=== PATIENT | male | born 1975 | race American Indian/Alaskan Native ===

== ENCOUNTER 2017-02-27 01:47 | Emergency (ER) | payer SELFPAY ==
[2017-02-27 02:11] VITALS: BP 134/91
== END 2017-02-27 04:20 | disposition left against medical advice (07) ==
LOC: ED 01:47
DX: R07.9 Chest pain, unspecified (principal); Z53.21 Procedure and treatment not carried out due to patient leaving prior to being seen by health care provider
CPT/HCPCS: 93005; 93010

== ENCOUNTER 2017-02-27 10:06 | Emergency (ER) | payer SELFPAY ==
--- NOTE | 2017-02-27 10:23 | Emergency Department Report ---
Chief Complaint: Chest Pain Stated Complaint: CHEST PAIN Time Seen by Provider: 02/27/17 10:18 - HPI History of Present Illness: PT states he went to sleep with chest pain( started 1900) but woke up at 0300 with worsening pain. PT states when he woke up, he also felt dizzy. - ROS Review of Systems: + chest pain + cough x 1 week - fever - vomiting - Exam Physical Exam: pt is alert and appropriate. no acute resp distress ant chest wall ttp MSE screening note: Focused history and physical exam performed. Due to findings the following was ordered: ekg, labs, xr ED Disposition for MSE Condition: Stable
[2017-02-27 10:25] VITALS: BP 155/102
--- NOTE | 2017-02-27 11:11 | XRay Report ---
CHEST 2 VIEWS INDICATION: Chest pain. COMPARISON: None similar at this institution. FINDINGS: PA and lateral chest radiographs demonstrate normal cardiomediastinal silhouette. Clear, mildly hyperexpanded lungs. No pleural effusions or CHF, though slight thickening/fluid along the major fissures noted. Intact bones. CONCLUSION: Possible COPD without acute chest process, as described. Thank you for the opportunity to participate in this patient's care.
[2017-02-27 11:18] LABS: Basophils % (Auto) 0.5 % (0.0-1.8); Eosinophils % (Auto) 2.3 % (0.0-4.3); Hematocrit 34.4 % (35.5-45.6); Hemoglobin 10.8 gm/dl (11.8-15.2); Mean Corpuscular HGB Conc 31 % (32-34); Mean Corpuscular Volume 73 fl (84-94); Platelet Count 224 K/mm3 (140-440); Red Blood Count 4.74 M/mm3 (3.65-5.03); Red Cell Distribution Width 16.6 % (13.2-15.2); White Blood Count 5.5 K/mm3 (4.5-11.0)
[2017-02-27 11:20] LABS: INR 0.93 (0.87-1.13)
[2017-02-27 11:21] LABS: Mean Corpuscular Hemoglobin 23 pg (28-32); Partial Thromboplastin Time 28.9 Sec. (24.2-36.6)
[2017-02-27 11:22] LABS: Alanine Aminotransferase 31 units/L (7-56); Albumin/Globulin Ratio 1.3 %; Alkaline Phosphatase 103 units/L (35-129); Anion Gap 18 mmol/L; Bilirubin,Total < 0.20 mg/dL (0.1-1.2); Blood Urea Nitrogen 14 mg/dL (9-20); Calcium 8.9 mg/dL (8.4-10.2); Carbon Dioxide 22 mmol/L (22-30); Chloride 99.8 mmol/L (98-107); Creatine Kinase 968 units/L (55-170); Glucose 122 mg/dL (75-100); Potassium 3.8 mmol/L (3.6-5.0); Sodium 136 mmol/L (137-145); Total Protein 7.1 g/dL (6.3-8.2)
[2017-02-27 11:40] LABS: Creatine Kinase MB 13.9 ng/mL (0.0-4.0)
== END 2017-02-27 10:55 | disposition left against medical advice (07) ==
LOC: ED 10:06
DX: R07.9 Chest pain, unspecified (principal); R42 Dizziness and giddiness; R05 Cough; Z53.21 Procedure and treatment not carried out due to patient leaving prior to being seen by health care provider
CPT/HCPCS: 36415; 71020; 80053; 82550; 82553; 83880; 84484; 85025; 85610; 85730; 93005; 93010

== ENCOUNTER 2017-02-27 23:41 | Emergency (ER) | payer SELFPAY ==
[2017-02-27 23:49] VITALS: BP 143/96
[2017-02-28 00:09] LABS: Basophils % (Auto) 0.8 % (0.0-1.8); Hematocrit 33.9 % (35.5-45.6); Hemoglobin 10.8 gm/dl (11.8-15.2); Mean Corpuscular HGB Conc 32 % (32-34); Mean Corpuscular Volume 72 fl (84-94); Platelet Count 220 K/mm3 (140-440); Red Blood Count 4.69 M/mm3 (3.65-5.03); Red Cell Distribution Width 17.2 % (13.2-15.2); White Blood Count 5.8 K/mm3 (4.5-11.0)
[2017-02-28 00:22] LABS: Mean Corpuscular Hemoglobin 23 pg (28-32)
[2017-02-28 00:32] LABS: Anion Gap 19 mmol/L; Blood Urea Nitrogen 18 mg/dL (9-20); Carbon Dioxide 23 mmol/L (22-30); Chloride 101.3 mmol/L (98-107); Glucose 110 mg/dL (75-100); Sodium 139 mmol/L (137-145)
== END 2017-02-28 04:24 | disposition left against medical advice (07) ==
LOC: ED 02-28 02:39
DX: R06.2 Wheezing (principal); Z53.21 Procedure and treatment not carried out due to patient leaving prior to being seen by health care provider
CPT/HCPCS: 36415; 80048; 84484; 85025; 93005; 93010

== ENCOUNTER 2017-03-05 08:18 | Emergency (ER) | payer SELFPAY ==
[2017-03-05 08:31] VITALS: BP 162/109
--- NOTE | 2017-03-10 10:57 | ED Elopement Review ---
ED Pt Elopement review - Call Back decision Pt Call Back Decision: No action required
== END 2017-03-05 08:30 | disposition left against medical advice (07) ==
LOC: ED 08:18
DX: I10 Essential (primary) hypertension (principal); Z53.21 Procedure and treatment not carried out due to patient leaving prior to being seen by health care provider

== ENCOUNTER 2017-03-06 23:16 | Emergency (ER) | payer SELFPAY | END 2017-03-06 23:23 | disposition left against medical advice (07) | LOC: ED 23:16 | DX: R03.0 Elevated blood-pressure reading, without diagnosis of hypertension (principal); Z53.21 Procedure and treatment not carried out due to patient leaving prior to being seen by health care provider ==

== ENCOUNTER 2017-03-08 12:17 | Emergency (ER) | payer SELFPAY | END 2017-03-08 12:18 | disposition left against medical advice (07) | LOC: ED 12:17 | DX: R03.0 Elevated blood-pressure reading, without diagnosis of hypertension (principal); R42 Dizziness and giddiness; Z53.21 Procedure and treatment not carried out due to patient leaving prior to being seen by health care provider ==

== ENCOUNTER 2017-03-11 14:32 | Emergency (ER) | payer SELFPAY ==
[2017-03-11 15:24] LABS: Anion Gap 17 mmol/L; BUN/Creatinine Ratio 18.88; Blood Urea Nitrogen 17 mg/dL (9-20); Calcium 8.4 mg/dL (8.4-10.2); Carbon Dioxide 22 mmol/L (22-30); Chloride 101.3 mmol/L (98-107); Glucose 130 mg/dL (75-100); Potassium 3.9 mmol/L (3.6-5.0); Sodium 136 mmol/L (137-145)
[2017-03-11 15:42] LABS: Urine Drugs of Abuse Note Disclamer
[2017-03-11 15:56] LABS: Bilirubin,Urine NEG (Negative); Blood,Urine NEG (Negative); Ketones,Urine NEG (Negative); Leukocyte Esterase,Urine NEG (Negative); Nitrite,Urine NEG (Negative); Protein,Urine <15 mg/dL mg/dL (Negative); Urobilinogen,Urine < 2.0 mg/dL (<2.0); WBC,Urine < 1.0 /HPF (0.0-6.0)
[2017-03-11 16:03] LABS: Hematocrit 31.8 % (35.5-45.6); Hemoglobin 10.2 gm/dl (11.8-15.2); Mean Corpuscular HGB Conc 32 % (32-34); Mean Corpuscular Volume 72 fl (84-94); Platelet Count 239 K/mm3 (140-440)
[2017-03-11 16:09] LABS: Mean Corpuscular Hemoglobin 23 pg (28-32)
--- NOTE | 2017-03-11 21:43 | Emergency Department Report ---
HPI - General Chief Complaint: Dizziness Time Seen by Provider: 03/11/17 21:27 - HPI HPI: Room 5 The patient is a 41-year-old male presenting with a chief complaint of schizophrenia. The patient states "I need help" regarding his schizophrenia. The patient admits to auditory hallucinations for 2-3 years. The patient states the voices are making" small talk." The patient states she's been out of his Abilify for the past 6-7 months. Patient denies visual hallucinations or suicidal/homicidal ideation. Location: Mental state Duration: [see above] Quality: Auditory Hallucinations Severity: Moderate Modifying factors: [see above] Context: [see above] Mode of transportation: [not driving] ED Past Medical Hx - Past Medical History Hx Hypertension: Yes Hx Psychiatric Treatment: Yes (SCHIZOPHRENIA) - Surgical History Additional Surgical History: "head surgery " - Family History Family history: no significant - Social History Smoking Status: Current Every Day Smoker Substance Use Type: None (denies illicit drug use), Alcohol (occasional) - Medications Home Medications: Home Medications Medication Instructions Recorded Confirmed Last Taken Type ARIPiprazole [Abilify] 10 mg PO DAILY 03/11/17 03/11/17 03/11/17 History ARIPiprazole [Abilify] 15 mg PO DAILY #90 tab 03/11/17 Unknown Rx ED Review of Systems ROS: Stated complaint: FEVER/DIZZINESS Other details as noted in HPI Comment: All other systems reviewed and negative Constitutional: denies: chills, fever Eyes: denies: eye pain, eye discharge, vision change ENT: denies: ear pain, throat pain Respiratory: denies: cough, shortness of breath, wheezing Cardiovascular: denies: chest pain, palpitations Endocrine: no symptoms reported Gastrointestinal: denies: abdominal pain, nausea, diarrhea Genitourinary: denies: urgency, dysuria Musculoskeletal: denies: back pain, joint swelling, arthralgia Skin: denies: rash, lesions Neurological: denies: headache, weakness, paresthesias Psychiatric: auditory hallucinations. denies: visual hallucinations, homicidal thoughts, suicidal thoughts Hematological/Lymphatic: denies: easy bleeding, easy bruising Physical Exam - Physical Exam Vital Signs: Vital Signs 03/11/17 14:36 Temperature 98.6 F Pulse Rate 112 H Respiratory 18 Rate Blood Pressure 133/80 O2 Sat by Pulse 97 Oximetry Physical Exam: GENERAL: The patient is well-developed well-nourished male sitting on stretcher not appearing to be in acute distress. [] HEENT: Normocephalic. Atraumatic. Extraocular motions are intact. Left Sclera injected NECK: Supple. No meningitic signs are noted. There is no adenopathy noted. CHEST/LUNGS: Clear to auscultation. There is no respiratory distress noted. HEART/CARDIOVASCULAR: Regular. There is no tachycardia. There is no gallop rub or murmur. ABDOMEN: Abdomen is soft, nontender. Patient has normal bowel sounds. There is no abdominal distention. SKIN: There is no rash. There is no edema. There is no diaphoresis. NEURO: The patient is awake, alert, and oriented. The patient is cooperative. The patient has no focal neurologic deficits. The patient has normal speech. Cranial nerves II through XII grossly intact, no drift MUSCULOSKELETAL: There is no evidence of acute injury. ED Course Vital Signs 03/11/17 14:36 Temperature 98.6 F Pulse Rate 112 H Respiratory 18 Rate Blood Pressure 133/80 O2 Sat by Pulse 97 Oximetry - Consultations Consultation #1: 03/11/17 23:17 Is discussed with consult Jhonny-patient does not meet inpatient criteria. Please patient should be given referral for outpatient follow-up ED Medical Decision Making - Lab Data Result diagrams: 03/11/17 14:55 03/11/17 14:55 Laboratory Tests 03/11/17 03/11/17 03/11/17 14:55 14:55 15:21 WBC 4.0 L RBC 4.40 Hgb 10.2 L Hct 31.8 L MCV 72 L MCH 23 L MCHC 32 RDW 17.0 H Plt Count 239 Sodium 136 L Potassium 3.9 Chloride 101.3 Carbon Dioxide 22 Anion Gap 17 BUN 17 Creatinine 0.9 Estimated GFR > 60 BUN/Creatinine Ratio 18.88 Glucose 130 H Calcium 8.4 Urine Color Yellow Urine Turbidity Clear Urine pH 6.0 Ur Specific Lloyd 1.015 Urine Protein <15 mg/dl Urine Glucose (UA) Neg Urine Ketones Neg Urine Blood Neg Urine Nitrite Neg Urine Bilirubin Neg Urine Urobilinogen < 2.0 Ur Leukocyte Esterase Neg Urine WBC (Auto) < 1.0 Urine RBC (Auto) 2.0 U Epithel Cells (Auto) < 1.0 Urine Opiates Screen Urine Methadone Screen Ur Barbiturates Screen Ur Phencyclidine Scrn Ur Amphetamines Screen U Benzodiazepines Scrn Urine Cocaine Screen U Marijuana (THC) Screen Drugs of Abuse Note Plasma/Serum Alcohol 03/11/17 03/11/17 15:21 22:34 WBC RBC Hgb Hct MCV MCH MCHC RDW Plt Count Sodium Potassium Chloride Carbon Dioxide Anion Gap BUN Creatinine Estimated GFR BUN/Creatinine Ratio Glucose Calcium Urine Color Urine Turbidity Urine pH Ur Specific Lloyd Urine Protein Urine Glucose (UA) Urine Ketones Urine Blood Urine Nitrite Urine Bilirubin Urine Urobilinogen Ur Leukocyte Esterase Urine WBC (Auto) Urine RBC (Auto) U Epithel Cells (Auto) Urine Opiates Screen Presumptive negative Urine Methadone Screen Presumptive negative Ur Barbiturates Screen Presumptive negative Ur Phencyclidine Scrn Presumptive negative Ur Amphetamines Screen Presumptive negative U Benzodiazepines Scrn Presumptive negative Urine Cocaine Screen Presumptive negative U Marijuana (THC) Screen Presumptive negative Drugs of Abuse Note Disclamer Plasma/Serum Alcohol < 0.01 - EKG Data -: EKG Interpreted by Ca EKG shows normal: sinus rhythm Rate: normal - EKG Data When compared to previous EKG there are: no significant change Interpretation: unchanged when compared t (02/27/2017) - Differential Diagnosis schizophrenia Critical care attestation.: If time is entered above; I have spent that time in minutes in the direct care of this critically ill patient, excluding procedure time. ED Disposition Clinical Impression: Schizophrenia, Auditory hallucinations Disposition: DC-01 TO HOME OR SELFCARE Is pt being admited?: No Does the pt Need Aspirin: No Condition: Stable Instructions: Schizophrenia (ED) Additional Instructions: Return to the emergency department immediately should you develop worsening symptoms, fever, inability to tolerate food or liquid or any other concerns. Prescriptions: ARIPiprazole [Abilify] 15 mg PO DAILY #90 tab Referrals: PRIMARY CARE, [Primary Care Provider] - 3-5 Days [facility] [Outside] - 3-5 Days Time of Disposition: 00:33
[2017-03-11] MEDS ORDERED: NACL 0.9% 1000 ML 1,000 ML IV ONE (23:13)
[2017-03-11] MEDS ORDERED: ABILIFY PO ONE (23:17)
[2017-03-11 23:58] VITALS: BP 135/80
== END 2017-03-12 01:34 | disposition home or self-care (01) ==
LOC: ED 14:32
DX: F20.9 Schizophrenia, unspecified (principal); R44.0 Auditory hallucinations; I10 Essential (primary) hypertension
CPT/HCPCS: 36415; 80048; 80307; 81001; 85027; 93005; 93010; 96360; 99284; G0480; J7030; 80320

== ENCOUNTER 2017-03-12 03:40 | Emergency (ER) | payer SELFPAY | END 2017-03-12 03:41 | disposition left against medical advice (07) | LOC: ED 03:40 | DX: R06.02 Shortness of breath (principal); Z53.21 Procedure and treatment not carried out due to patient leaving prior to being seen by health care provider ==

== ENCOUNTER 2017-03-12 07:33 | Emergency (ER) | payer SELFPAY ==
[2017-03-12 07:48] VITALS: BP 114/79
[2017-03-12 08:10] LABS: Basophils % (Auto) 0.7 % (0.0-1.8); Eosinophils % (Auto) 1.3 % (0.0-4.3); Hematocrit 33.4 % (35.5-45.6); Hemoglobin 10.8 gm/dl (11.8-15.2); Mean Corpuscular HGB Conc 32 % (32-34); Mean Corpuscular Volume 71 fl (84-94); Platelet Count 228 K/mm3 (140-440); Red Blood Count 4.71 M/mm3 (3.65-5.03); Red Cell Distribution Width 17.5 % (13.2-15.2); White Blood Count 4.7 K/mm3 (4.5-11.0)
[2017-03-12 08:11] LABS: Mean Corpuscular Hemoglobin 23 pg (28-32)
[2017-03-12 08:19] LABS: Urine Drugs of Abuse Note Disclamer
[2017-03-12 08:27] LABS: Anion Gap 14 mmol/L; BUN/Creatinine Ratio 18.75; Blood Urea Nitrogen 15 mg/dL (9-20); Calcium 8.8 mg/dL (8.4-10.2); Carbon Dioxide 26 mmol/L (22-30); Chloride 100.6 mmol/L (98-107); Glucose 91 mg/dL (75-100); Sodium 137 mmol/L (137-145)
[2017-03-12 08:35] LABS: Bilirubin,Urine NEG (Negative); Blood,Urine NEG (Negative); Ketones,Urine NEG (Negative); Leukocyte Esterase,Urine NEG (Negative); Nitrite,Urine NEG (Negative); Protein,Urine <15 mg/dL mg/dL (Negative); Urobilinogen,Urine < 2.0 mg/dL (<2.0)
== END 2017-03-12 08:10 | disposition left against medical advice (07) ==
LOC: ED 07:33
DX: F29 Unspecified psychosis not due to a substance or known physiological condition (principal); Z53.21 Procedure and treatment not carried out due to patient leaving prior to being seen by health care provider
CPT/HCPCS: 36415; 80048; 80307; 81001; 85025; G0480; 80320